=== PATIENT | female | born 1970 | race American Indian/Alaskan Native ===

== ENCOUNTER 2020-02-21 23:23 | Emergency (ER) | payer OTHER ==
[2020-02-21 23:43] VITALS: BP 203/92; PULSE 84
[2020-02-21] MEDS ORDERED: Acetaminophen 500 MG Tab PO ONE (23:56)
[2020-02-21] MEDS ORDERED: Ibuprofen 800 MG Tab PO ONE (23:56)
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
== END 2020-02-22 00:13 | disposition home or self-care (01) ==
LOC: MW.ED 23:23
DX: G62.9 Polyneuropathy, unspecified (principal); I10 Essential (primary) hypertension; E11.9 Type 2 diabetes mellitus without complications; K21.9 Gastro-esophageal reflux disease without esophagitis; E03.9 Hypothyroidism, unspecified; E66.9 Obesity, unspecified; Z68.23 Body mass index [BMI] 23.0-23.9, adult; Z91.040 Latex allergy status; Z79.899 Other long term (current) drug therapy; Z79.84 Long term (current) use of oral hypoglycemic drugs
CPT/HCPCS: 99283; A9270; 99282